=== PATIENT | male | born 1985 | race African-American/Black ===

== ENCOUNTER 2017-11-20 09:32 | Emergency (ER) | payer OTHER ==
[2017-11-20 09:43] VITALS: BP 130/98
--- NOTE | 2017-11-20 10:30 | EDM.PDOC ---
ED HPI GENERAL MEDICAL PROBLEM - General Chief Complaint: General Stated Complaint: family member has strep would like to be tested Time Seen by Provider: 11/20/17 09:49 Source of Information: Reports: Patient History Limitations: Reports: No Limitations - History of Present Illness INITIAL COMMENTS - FREE TEXT/NARRATIVE: Patient would like strep test as significant other was + for strep. History of mild sore throat and cough for two days. No fevers. No other complaints. throat pn Pain Score (Numeric/FACES): 8 - Related Data Allergies Allergy/AdvReac Type Severity Reaction Status Date / Time No Known Allergies Allergy Verified 11/20/17 09:35 Home Meds: Home Meds . [No Known Home Meds] 11/20/17 [History] Past Medical History - Past Health History Medical/Surgical History: Denies Medical/Surgical History HEENT History: Reports: Allergic Rhinitis, Impaired Vision, Other (See Below) Other HEENT History: Glasses Respiratory History: Reports: None. Denies: Asthma, Intubation, Previous, PE, Pneumothorax Gastrointestinal History: Reports: None. Denies: Celiac Disease, Chronic Constipation, Chronic Diarrhea, Gastritis, GERD, GI Bleed, Hepatitis, Hiatal Hernia, Jaundice, Pancreatitis, PUD Genitourinary History: Reports: None. Denies: BPH, Chronic Renal Insuffiency, Renal Calculus, STD, Urinary Incontinence, UTI, Recurrent Musculoskeletal History: Reports: None. Denies: Arthritis, Back Pain, Chronic, Fracture, Gout, Neck Pain, Chronic, Osteoarthritis, RA, SLE Neurological History: Reports: None. Denies: Cerebral Aneurysms, Concussion, CVA, Headaches, Chronic, Head Trauma, Migraines, Neuropathy, Peripheral, Seizure , TIA Endocrine/Metabolic History: Reports: None. Denies: Diabetes, Type I, Diabetes , Type II, Hypothyroidism, IDDM Hematologic History: Reports: None. Denies: Anemia, Iron Deficiency Immunologic History: Reports: None. Denies: AIDS, HIV Oncologic (Cancer) History: Reports: None. Denies: Basal Cell Carcinoma, Hodgkin's Lymphoma, Leukemia, Lymphoma, Malignant Melanoma, Non-Hodgkin's Lymphoma, Squamous Cell Carcinoma Dermatologic History: Reports: None. Denies: Eczema, Psoriasis - Infectious Disease History Infectious Disease History: Reports: Chicken Pox - Past Surgical History HEENT Surgical History: Reports: Oral Surgery, Other (See Below) Male Surgical History: Reports: Circumcision, Other (See Below) - Past Imaging History Past Imaging History: Reports: None Social & Family History - Tobacco Use Smoking Status *Q: Never Smoker Used Tobacco, but Quit: No Second Hand Smoke Exposure: No - Caffeine Use Caffeine Use: Reports: Soda (One soda every 2 weeks). Denies: Coffee, Energy Drinks, Tea - Alcohol Use Days Per Week of Alcohol Use: 0 (No previous DWI, etc.) Number of Drinks Per Day: 1 Total Drinks Per Week: 0 - Recreational Drug Use Recreational Drug Use: No Drug Use in Last 12 Months: No - Living Situation & Occupation Living situation: Reports: , with Family Occupation: Employed ED ROS GENERAL - Review of Systems Review Of Systems: See Below Constitutional: Reports: No Symptoms HEENT: Reports: Rhinitis, Throat Pain Respiratory: Reports: Cough Cardiovascular: Reports: No Symptoms GI/Abdominal: Reports: No Symptoms : Reports: No Symptoms Musculoskeletal: Reports: No Symptoms Skin: Reports: No Symptoms Neurological: Reports: No Symptoms Psychiatric: Reports: No Symptoms ED EXAM, GENERAL - Physical Exam Exam: See Below Exam Limited By: No Limitations General Appearance: Alert, WD/WN, No Apparent Distress Eye Exam: Bilateral Eye: Normal Inspection, PERRL Ears: Normal External Exam, Normal Canal, Hearing Grossly Normal, Normal TMs Nose: Normal Inspection Throat/Mouth: Normal Inspection, Normal Lips, Normal Oropharynx, Normal Voice, No Airway Compromise Head: Atraumatic, Normocephalic Neck: Normal Inspection, Supple, Non-Tender. No: Lymphadenopathy (L), Lymphadenopathy (R) Respiratory/Chest: No Respiratory Distress, Lungs Clear, Normal Breath Sounds, No Accessory Muscle Use Cardiovascular: Regular Rate, Rhythm, No Murmur GI/Abdominal: Soft, Non-Tender Extremities: Normal Inspection, Normal Capillary Refill Neurological: Alert, Oriented, Normal Cognition, Normal Gait Psychiatric: Normal Affect, Normal Mood Skin Exam: Warm, Dry, Intact, Normal Color Lymphatic: No Adenopathy Course - Vital Signs Last Recorded V/S: Last Vital Signs Temp 37.1 C 11/20/17 09:36 Pulse 104 H 11/20/17 09:36 Resp 18 11/20/17 09:36 BP 130/98 H 11/20/17 09:36 Pulse Ox 97 11/20/17 09:36 - Orders/Labs/Meds Orders: Active Orders 24 hr Category Date Time Status CULTURE STREP A CONFIRMATION [RM] Stat Lab 11/20/17 10:05 Results STREP SCRN A RAPID W CULT CONF [RM] Stat Lab 11/20/17 10:05 Results - Re-Assessments/Exams Free Text/Narrative Re-Assessment/Exam: 11/20/17 14:42 Negative rapid strep Culture pending. Suspect viral syndrome at this point in time. Precautions reviewed. TO follow up as needed. Recommend serial recheck of BPs also as BP noted to be elevated while in ER. No diagnosis of Htn. Departure - Departure Time of Disposition: 10:29 Disposition: Home, Self-Care 01 Clinical Impression: Respiratory tract infection - Discharge Information Instructions: Viral Respiratory Infection, [id number] Referrals: PCP,Unknown [Primary Care Provider] - Forms: ED Department Discharge Additional Instructions: Follow up as needed if this does not follow a normal viral course - My Orders Last 24 Hours: My Active Orders 11/20/17 10:05 CULTURE STREP A CONFIRMATION [RM] Stat STREP SCRN A RAPID W CULT CONF [RM] Stat - Assessment/Plan Last 24 Hours: My Active Orders 11/20/17 10:05 CULTURE STREP A CONFIRMATION [RM] Stat STREP SCRN A RAPID W CULT CONF [RM] Stat
== END 2017-11-20 10:46 | disposition home or self-care (01) ==
LOC: LL.ED 09:32
DX: J98.8 Other specified respiratory disorders (principal); B95.5 Unspecified streptococcus as the cause of diseases classified elsewhere
CPT/HCPCS: 87081; 87430; 99283

== ENCOUNTER 2021-08-19 17:04 | Emergency (ER) | payer OTHER ==
[2021-08-19 18:12] VITALS: BP 147/87; PULSE 62
--- NOTE | 2021-08-19 18:22 | EDM.PDOC ---
ED HPI GENERAL MEDICAL PROBLEM - General Chief Complaint: General Stated Complaint: DIZZINESS, ABDOMINAL PAIN Time Seen by Provider: 08/19/21 18:04 Source of Information: Reports: Patient - History of Present Illness INITIAL COMMENTS - FREE TEXT/NARRATIVE: Gwyn is a 36 y/o male who presents to the ER with complaints of headache and cough. Has burning in his chest and just overall feels terrible. 13 y/o son with similar sx. No fever. Has not yet had the COVID vaccine. - Related Data Allergies Allergy/AdvReac Type Severity Reaction Status Date / Time No Known Allergies Allergy Verified 03/26/18 13:34 Home Meds: Home Meds Loratadine [Claritin] 10 mg PO DAILY 03/26/18 [History] Albuterol/Ipratropium [DuoNeb 3.0-0.5 MG/3 ML] 3 ml .XX QID #1 box 08/19/21 [Rx] Benzonatate 100 - 200 mg PO Q8HR PRN #60 capsule 08/19/21 [Rx] Codeine/Promethazine HCl [Phenergan with Codeine] 5 - 10 ml PO Q4HR PRN #118 syrup 08/19/21 [Rx] Past Medical History - Past Health History Medical/Surgical History: Denies Medical/Surgical History HEENT History: Reports: Allergic Rhinitis, Impaired Vision, Other (See Below) Other HEENT History: Glasses Respiratory History: Reports: None. Denies: Asthma, Intubation, Previous, PE, Pneumothorax Gastrointestinal History: Reports: None. Denies: Celiac Disease, Chronic Constipation, Chronic Diarrhea, Gastritis, GERD, GI Bleed, Hepatitis, Hiatal Hernia, Jaundice, Pancreatitis, PUD Genitourinary History: Reports: None. Denies: BPH, Chronic Renal Insuffiency, Renal Calculus, STD, Urinary Incontinence, UTI, Recurrent Musculoskeletal History: Reports: None. Denies: Arthritis, Back Pain, Chronic, Fracture, Gout, Neck Pain, Chronic, Osteoarthritis, RA, SLE Neurological History: Reports: None. Denies: Cerebral Aneurysms, Concussion, CVA, Headaches, Chronic, Head Trauma, Migraines, Neuropathy, Peripheral, Seizure, TIA Endocrine/Metabolic History: Reports: None. Denies: Diabetes, Type I, Diabetes, Type II, Hypothyroidism, IDDM Hematologic History: Reports: None. Denies: Anemia, Iron Deficiency Immunologic History: Reports: None. Denies: AIDS, HIV Oncologic (Cancer) History: Reports: None. Denies: Basal Cell Carcinoma, Hodgkin's Lymphoma, Leukemia, Lymphoma, Malignant Melanoma, Non-Hodgkin's Lymphoma, Squamous Cell Carcinoma Dermatologic History: Reports: None. Denies: Eczema, Psoriasis - Infectious Disease History Infectious Disease History: Reports: Chicken Pox - Past Surgical History HEENT Surgical History: Reports: Oral Surgery, Other (See Below) Male Surgical History: Reports: Circumcision, Other (See Below) - Past Imaging History Past Imaging History: Reports: None Social & Family History - Caffeine Use Caffeine Use: Reports: Soda (One soda every 2 weeks). Denies: Coffee, Energy Drinks, Tea - Living Situation & Occupation Living situation: Reports: , with Family Occupation: Employed ED ROS GENERAL - Review of Systems Review Of Systems: See Below Constitutional: Reports: Malaise, Fatigue HEENT: Reports: No Symptoms Respiratory: Reports: Cough Cardiovascular: Reports: No Symptoms Endocrine: Reports: No Symptoms GI/Abdominal: Reports: Decreased Appetite : Reports: No Symptoms Musculoskeletal: Reports: No Symptoms Skin: Reports: No Symptoms Neurological: Reports: Headache Psychiatric: Reports: No Symptoms Hematologic/Lymphatic: Reports: No Symptoms ED EXAM, GENERAL - Physical Exam Exam: See Below General Appearance: Alert, WD/WN, No Apparent Distress Eye Exam: Bilateral Eye: PERRL Ears: Normal External Exam, Normal Canal, Hearing Grossly Normal, Normal TMs Nose: Normal Inspection, Normal Mucosa Throat/Mouth: Normal Inspection, Normal Lips, Normal Oropharynx, Normal Voice Head: Atraumatic, Normocephalic Neck: Supple Respiratory/Chest: No Respiratory Distress, Lungs Clear, Chest Non-Tender Cardiovascular: Regular Rate, Rhythm, No Murmur GI/Abdominal: Normal Bowel Sounds, Soft, Non-Tender (Male) Exam: Deferred Rectal (Males) Exam: Deferred Back Exam: Normal Inspection Extremities: Normal Inspection, Normal Range of Motion, No Pedal Edema, Normal Capillary Refill Neurological: Alert, Oriented, CN II-XII Intact Psychiatric: Normal Affect, Normal Mood Skin Exam: Warm, Dry, Intact, Normal Color Lymphatic: No Adenopathy Course - Vital Signs Text/Narrative:: The patient was seen by the [facility]. COVID test was done. COVID test result was negative. Reviewed results with patient and care at home. Written instructions were given and he left the ER in stable condition. Last Recorded V/S: Last Vital Signs Temp 37.1 C 08/19/21 18:11 Pulse 62 08/19/21 18:11 Resp 18 08/19/21 18:11 BP 147/87 H 08/19/21 18:11 Pulse Ox 100 08/19/21 18:11 - Orders/Labs/Meds Labs: Laboratory Tests 08/19/21 Range/Units 18:15 SARS-CoV-2 Ag (Rapid) Positive A (NEGATIVE) Departure - Departure Time of Disposition: 19:35 Disposition: Home, Self-Care 01 Condition: Good Clinical Impression: COVID-19 - Discharge Information Prescriptions: Benzonatate 100 - 200 mg PO Q8HR PRN #60 capsule PRN Reason: Cough Albuterol/Ipratropium [DuoNeb 3.0-0.5 MG/3 ML] 3 ml .XX QID #1 box Codeine/Promethazine HCl [Phenergan with Codeine] 5 - 10 ml PO Q4HR PRN #118 syrup PRN Reason: Cough Instructions: What You Should Know About COVID-19 to Protect Yourself and Others - CDC, 10 Things You Can Do to Manage Your COVID-19 Symptoms at Home - [facility] (04/11/2021) Forms: ED Department Discharge, ED Return to Work/School Form Additional Instructions: -Ibuprofen /Acetaminophen as needed [You may also use over the counter meds] -Phenergan DM 10 ml oral every 4 hour as needed for cough #118ml (Rx) -Benzonate Capsules 1-2 caps oral every 8 hours as needed for cough #60 (Rx) -Duonebs every 4x daily as needed for cough/shortness of breath (Rx) -Drink plenty of fluids -Rest -Quarantine for 10 days from positive test and monitor for symptoms. -Return to the ER or clinic if your condition is not improving as expected or you have any worsening of symptoms that you are unable to manage at home. -See COVID Home Instruction Sheet below Sepsis Event Note (ED) - Evaluation Sepsis Screening Result: No Definite Risk - Focused Exam Vital Signs: Vital Signs Temp Pulse Resp BP Pulse Ox 08/19/21 18:11 37.1 C 62 18 147/87 H 100 - Problem List & Annotations (1) COVID-19 SNOMED Code(s): 713135167 Code(s): U07.1 - COVID-19 Status: Acute - Problem List Review Problem List Initiated/Reviewed/Updated: Yes - Assessment/Plan Plan: As above
== END 2021-08-19 19:45 | disposition home or self-care (01) ==
LOC: LL.ED 17:04
DX: U07.1 COVID-19 (principal)
CPT/HCPCS: 87426; 99284